=== PATIENT | female | born 1990 | race American Indian/Alaskan Native ===

== ENCOUNTER 2016-09-21 08:17 | Outpatient (CLI) | payer OTHER ==
--- NOTE | 2016-09-21 09:18 | Ultrasound Report ---
LEFT BREAST ULTRASOUND: 09/21/16 08:17:00 CLINICAL: 26 year-old with pain, tenderness and swelling in the outer left breast. She is taking antibiotics. COMPARISON: None. FINDINGS: Ultrasound of the left breast(including all four quadrants and the retroareolar area) was performed and demonstrated normal fibroglandular and fatty structures. No mass, cyst or shadowing. IMPRESSION: Normal left breast ultrasound. BI-RADS 1 - - Negative RECOMMENDATION: Clinical followup. Recommend a left mammogram if symptoms worsen or do not resolve within one months.
== END 2016-09-21 08:18 | disposition home or self-care (01) ==
LOC: SPVWC 08:17
PROVIDERS: ATTEND Specialist
DX: N63 Unspecified lump in breast (principal); N64.4 Mastodynia; Z79.2 Long term (current) use of antibiotics